=== PATIENT | female | born 1980 ===

== ENCOUNTER 2017-10-13 19:40 | Emergency (ER) | payer SELFPAY ==
[2017-10-13 19:57] VITALS: BP 121/87; PULSE 60; RESP 18; TEMP 98; O2SAT 100
--- NOTE | 2017-10-13 21:19 | C.PDOC ---
History Of Present Illness 37 y/o female presents to the ER complaining of intermittent nasal congestion, throat congestion and intermittent upper back pain which has been present for the past 1 year. Patient is also complaining of hoarse voice. Patient reports that she saw her PMD and she was diagnosed with " most lkely allergies." She was prescribed mantibiotic without improvement. Denies having SOB, CP, headache , fever, and cough. Time Seen by Provider: 10/13/17 20:01 Chief Complaint (Nursing): Back Pain History Per: Patient History/Exam Limitations: no limitations Onset/Duration Of Symptoms: Days Current Symptoms Are (Timing): Still Present Severity: Moderate Past Medical History Reviewed: Historical Data, Nursing Documentation, Vital Signs Vital Signs: Last Vital Signs Temp 98 F 10/13/17 19:54 Pulse 60 10/13/17 19:54 Resp 18 10/13/17 19:54 BP 121/87 10/13/17 19:54 Pulse Ox 100 10/13/17 21:31 - Medical History PMH: No Chronic Diseases Surgical History: No Surg Hx Family History: States: No Known Family Hx - Social History Hx Alcohol Use: No Hx Substance Use: No - Immunization History Hx Tetanus Toxoid Vaccination: No Hx Influenza Vaccination: No Hx Pneumococcal Vaccination: No Review Of Systems Except As Marked, All Systems Reviewed And Found Negative. Constitutional: Negative for: Fever, Chills ENT: Positive for: Nose Congestion, Other (throat congestion) Cardiovascular: Negative for: Chest Pain Respiratory: Negative for: Shortness of Breath Musculoskeletal: Positive for: Back Pain Neurological: Negative for: Headache Physical Exam - Physical Exam Appears: Non-toxic, No Acute Distress Skin: Normal Color, Warm, Dry Head: Atraumatic, Normacephalic Eye(s): bilateral: Normal Inspection Ear(s): Bilateral: Normal Nose: Other (enlarged nasal turbinates) Oral Mucosa: Moist Throat: Normal, No Erythema, No Exudate Neck: Supple Cardiovascular: Rhythm Regular Respiratory: No Rales, No Rhonchi, Wheezing Back: Normal Inspection, No Vertebral Tenderness, No Paraspinal Tenderness Neurological/Psych: Oriented x3, Normal Speech ED Course And Treatment O2 Sat by Pulse Oximetry: 100 (RA) Pulse Ox Interpretation: Normal Progress Note: CXR was negative. Patient treated with Motrin PO. On re- evaluation, patient is in no respiratory dostress. Feels better. Patient has been discharged and instructed to follow up in clinic. Disposition Counseled Patient/Family Regarding: Diagnosis, Need For Followup, Rx Given - Disposition Disposition: HOME/ ROUTINE Disposition Time: 21:16 Condition: STABLE Additional Instructions: Please follow up in clinic- [facility] Prescriptions: Cetirizine HCl [Zyrtec] 10 mg PO DAILY #20 capsule Ibuprofen [Motrin] 600 mg PO Q6H #30 tab Mometasone Furoate [Nasonex] 2 spray NS DAILY #1 bottle Instructions: Seasonal Allergies (DC) Forms: [email or web address] (Polish) Print Language: GREENLANDIC - Clinical Impression Clinical Impression: Allergic rhinitis - PA / RN OTOLARYNGOLOGY / Resident Statement MD/DO has reviewed & agrees with the documentation as recorded. - Scribe Statement The provider has reviewed the documentation as recorded by the Delmaibe Gonzalez Briceno Provider Attestation All medical record entries made by the Delmaibe were at my direction and personally dictated by me. I have reviewed the chart and agree that the record accurately reflects my personal performance of the history, physical exam, medical decision making, and the department course for this patient. I have also personally directed, reviewed, and agree with the discharge instructions and disposition.
--- NOTE | 2017-10-14 07:43 | RAD ---
Date of service: 10/13/2017 HISTORY: back pain, chest congestion COMPARISON: No prior. TECHNIQUE: Chest PA and lateral FINDINGS: LUNGS: No active pulmonary disease. PLEURA: No significant pleural effusion identified. No pneumothorax apparent. CARDIOVASCULAR: Normal. OSSEOUS STRUCTURES: No significant abnormalities. VISUALIZED UPPER ABDOMEN: Normal. OTHER FINDINGS: None. IMPRESSION: No acute cardiopulmonary disease appreciated.
== END 2017-10-13 21:22 | disposition home or self-care (01) ==
LOC: C.ER 19:40
DX: J30.9 Allergic rhinitis, unspecified (principal)

== ENCOUNTER 2018-05-17 08:16 | Emergency (ER) | payer OTHER ==
[2018-05-17 08:23] VITALS: PULSE 62; RESP 18; O2SAT 100
--- NOTE | 2018-05-17 09:09 | C.PDOC ---
History Of Present Illness 37 y/o female presents to the ER complaining of right hand and left ankle pain s/p mechanical fall yesterday. Patient states that she tripped while she was going down the stairs. Patient reports that she fell on her left side and she injured her right hand and twisted her left ankle. She notes that she has been walking with a limp. She took Advil at midnight and she applied ice to her ankle. Denies having LOC, head injury, dizziness, weakness, CP, SOB, and difficulty bearing weight on left foot. Time Seen by Provider: 05/17/18 08:36 Chief Complaint (Nursing): Lower Extremity Problem/Injury History Per: Patient History/Exam Limitations: no limitations Onset/Duration Of Symptoms: Days Current Symptoms Are (Timing): Still Present Severity: Moderate Past Medical History Reviewed: Historical Data, Nursing Documentation, Vital Signs Vital Signs: Last Vital Signs Temp 98.7 F 05/17/18 08:21 Pulse 62 05/17/18 08:21 Resp 18 05/17/18 08:21 BP 119/72 05/17/18 08:21 Pulse Ox 100 05/17/18 08:21 - Medical History PMH: No Chronic Diseases Surgical History: No Surg Hx Family History: States: No Known Family Hx - Social History Hx Alcohol Use: No Hx Substance Use: No - Immunization History Hx Tetanus Toxoid Vaccination: No Hx Influenza Vaccination: No Hx Pneumococcal Vaccination: No Review Of Systems Except As Marked, All Systems Reviewed And Found Negative. Constitutional: Negative for: Fever, Chills Cardiovascular: Negative for: Chest Pain Respiratory: Negative for: Shortness of Breath Musculoskeletal: Positive for: Hand Pain (right hand pain), Other (left ankle pain) Neurological: Negative for: Weakness, Numbness, Headache, Dizziness Physical Exam - Physical Exam Appears: Non-toxic, No Acute Distress Skin: Normal Color, Warm, Dry Head: Atraumatic, Normacephalic Eye(s): bilateral: Normal Inspection Nose: Normal Oral Mucosa: Moist Neck: Supple Chest: Symmetrical Extremity: Normal ROM (normal ROM in right hand and left ankle), Tenderness (pinpoint tenderness to medial aspect of right hand, tenderness to lateral aspect of left ankle), Capillary Refill (< 2 seconds), No Swelling Pulses: Left Radial: Normal, Right Radial: Normal, Left Dorsalis Pedis: Normal, Right Dorsalis Pedis: Normal Neurological/Psych: Oriented x3, Normal Speech, Normal Cognition, Normal Motor, Normal Sensation ED Course And Treatment O2 Sat by Pulse Oximetry: 100 (RA) Pulse Ox Interpretation: Normal - Other Rad X-Ray-Left Ankle X-Ray: Viewed By Me, Read By Radiologist Interpretation: PROCEDURE: Left Ankle Radiographs. HISTORY: s/p fall. COMPARISON: None available. FINDINGS: BONES: No acute displaced fracture. JOINTS: No dislocation. SOFT TISSUES: Soft tissue swelling. No evidence of radiopaque foreign body. OTHER FINDINGS: None. IMPRESSION: Soft tissue swelling. No acute displaced fracture, dislocation, or significant joint effusion identified. If symptoms persist or if there is clinical concern, x-ray follow-up in 7-10 days should be considered. X-Ray-Right Wrist X-Ray: Viewed By Me, Read By Radiologist Interpretation: PROCEDURE: Right Wrist Radiographs. HISTORY: s/p fall. COMPARISON: None available. FINDINGS: BONES: No acute displaced fracture identified. JOINTS: No dislocation. SOFT TISSUES: Unremarkable. No evidence of radiopaque foreign body. OTHER FINDINGS: None. IMPRESSION: No acute displaced fracture identified. Mild soft tissue swelling. If high clinical index of suspicion for acute fracture, cross-sectional imaging may be considered. Progress Note: X-Ray-Right Wrist, X-Ray-Left Ankle, and POC ordered. Motrin PO given. Images reviewed and no acute factures. Patient notified of the results. Left ankle wrapped with juan ramon bandage and given air cast. Velcro Wrist splint applied to Right wrist. Patient was advised to follow up with ortho if symptoms persist or worsen. Patient verbalized understanding and is in agreement with plan Disposition Counseled Patient/Family Regarding: Studies Performed, Diagnosis, Need For Followup, Rx Given - Disposition Referrals: [facility] [Outside] Disposition: HOME/ ROUTINE Disposition Time: 10:18 Condition: STABLE Additional Instructions: HU DIAZ, thank you for letting us take care of you today. Your provider was Jono Iyer MD/Seema Corbett PA-C and you were treated for FALL/FOOT PAIN. The emergency medical care you received today was directed at your acute symptoms. If you were prescribed any medication, please fill it and take as directed. It may take several days for your symptoms to resolve. Return to the Emergency Department if your symptoms worsen, do not improve, or if you have any other problems. Please contact your doctor or call one of the physicians/clinics you have been referred to that are listed on the Patient Visit Information form that is included in your discharge packet. Bring any paperwork you were given at discharge with you along with any medications you are taking to your follow up visit. Our treatment cannot replace ongoing medical care by a primary care provider outside of the emergency department. Thank you for allowing the [facility] team to be part of your care today. Prescriptions: RX: Naproxen [Naprosyn] 500 mg PO BID PRN #30 tablet PRN Reason: Pain, Moderate (4-7) Instructions: Ankle Sprain (DC), Joint Pain Forms: [employer] (South [place]ese), Work Excuse Print Language: ARABIC - Clinical Impression Clinical Impression: Sprain of ankle, left, Wrist joint pain - PA / COUNTER MAKER / Resident Statement MD/DO has reviewed & agrees with the documentation as recorded. - Scribe Statement The provider has reviewed the documentation as recorded by the Adithya Briceno Provider Attestation All medical record entries made by the Adithya were at my direction and personally dictated by me. I have reviewed the chart and agree that the record accurately reflects my personal performance of the history, physical exam, medical decision making, and the department course for this patient. I have also personally directed, reviewed, and agree with the discharge instructions and disposition.
[2018-05-17 10:55] VITALS: BP 118/72; TEMP 98.6
--- NOTE | 2018-05-17 12:48 | RAD ---
PROCEDURE: Right Wrist Radiographs. HISTORY: s/p fall COMPARISON: None available. FINDINGS: BONES: No acute displaced fracture identified. JOINTS: No dislocation. SOFT TISSUES: Unremarkable. No evidence of radiopaque foreign body OTHER FINDINGS: None. IMPRESSION: No acute displaced fracture identified. Mild soft tissue swelling. If high clinical index of suspicion for acute fracture, cross-sectional imaging may be considered.
--- NOTE | 2018-05-17 12:50 | RAD ---
PROCEDURE: Left Ankle Radiographs. HISTORY: s/p fall COMPARISON: None available. FINDINGS: BONES: No acute displaced fracture. JOINTS: No dislocation. SOFT TISSUES: Soft tissue swelling. No evidence of radiopaque foreign body. OTHER FINDINGS: None. IMPRESSION: Soft tissue swelling. No acute displaced fracture, dislocation, or significant joint effusion identified. If symptoms persist or if there is clinical concern, x-ray follow-up in 7-10 days should be considered.
== END 2018-05-17 10:57 | disposition home or self-care (01) ==
LOC: C.ER 08:16
DX: S93.402A Sprain of unspecified ligament of left ankle, initial encounter (principal); W10.9XXA Fall (on) (from) unspecified stairs and steps, initial encounter; M25.532 Pain in left wrist